=== PATIENT | male | born 1970 | race Native Hawaiian/Other Pacific Islander ===

== ENCOUNTER 2016-12-26 19:42 | Emergency (ER) | payer OTHER ==
[~2016-12-26] VITALS: Ht 172.7 cm; Wt 68.0 kg
[2016-12-26 23:58] VITALS: BP 134/72; TEMP 98.1
== END 2016-12-26 23:59 | disposition home or self-care (01) ==
LOC: ED 19:42
DX: M47.896 Other spondylosis, lumbar region (principal); M47.894 Other spondylosis, thoracic region; W17.2XXA Fall into hole, initial encounter; Y92.098 Other place in other non-institutional residence as the place of occurrence of the external cause
CPT/HCPCS: 96372; 99283; J2360

== ENCOUNTER 2017-01-07 17:05 | Outpatient (CLI) | payer OTHER | END 2017-01-07 17:07 | disposition short-term general hospital (02) | LOC: AMB 17:05 | DX: M54.89 Other dorsalgia (principal); S01.81XA Laceration without foreign body of other part of head, initial encounter; S61.011A Laceration without foreign body of right thumb without damage to nail, initial encounter; V49.88XA Car occupant (driver) (passenger) injured in other specified transport accidents, initial encounter; Y92.488 Other paved roadways as the place of occurrence of the external cause | CPT/HCPCS: A0425; A0427 ==

== ENCOUNTER 2017-01-07 17:11 | Emergency (ER) | payer OTHER ==
[~2017-01-07] VITALS: Ht 172.7 cm; Wt 72.6 kg
[2017-01-07 17:57] LABS: PLATELET COUNT 304 K/uL (142-355)
[2017-01-07 18:12] LABS: POTASSIUM 3.8 mmol/L (3.6-5.2); SODIUM 138 mmol/L (136-145)
[2017-01-07 22:06] VITALS: BP 115/90; TEMP 98
== END 2017-01-07 22:20 | disposition home or self-care (01) ==
LOC: ED 17:11
PROVIDERS: Emergency Medicine
PROC: 0JQ10ZZ Repair Face Subcutaneous Tissue and Fascia, Open Approach (ICD-10-PCS; principal; 2017-01-07)
PROC: 0JQJ0ZZ Repair Right Hand Subcutaneous Tissue and Fascia, Open Approach (ICD-10-PCS; 2017-01-07)
DX: S80.01XA Contusion of right knee, initial encounter (principal); S01.81XA Laceration without foreign body of other part of head, initial encounter; S00.81XA Abrasion of other part of head, initial encounter; S00.83XA Contusion of other part of head, initial encounter; S61.216A Laceration without foreign body of right little finger without damage to nail, initial encounter; V44.5XXA Car driver injured in collision with heavy transport vehicle or bus in traffic accident, initial encounter
CPT/HCPCS: 36415; 80053; 80320; 85027; 90715; 96361; 96372; 96374; 99285; J1630; J1885; J7040; Q9963

== ENCOUNTER → 2017-05-15 19:08 | Outpatient (CLI) | payer OTHER | END | disposition home or self-care (01) | LOC: AMB 19:08 | DX: R56.9 Unspecified convulsions (principal) ==

== ENCOUNTER 2017-05-30 20:43 | Emergency (ER) | payer OTHER ==
[~2017-05-30] VITALS: Ht 172.7 cm; Wt 75.3 kg
[2017-05-30 21:42] VITALS: TEMP 98
[2017-05-30] MEDS ORDERED: NORCO 10/325***1 TAB PO (21:44)
[2017-05-30] MEDS ORDERED: XANAX XR1 MG OR (21:44)
[2017-05-30] MEDS ORDERED: KEPPRA1000 MG PO (21:45)
[2017-05-31 01:08] VITALS: BP 124/72
== END 2017-05-31 01:08 | disposition home or self-care (01) ==
LOC: ED 20:43
DX: S50.11XA Contusion of right forearm, initial encounter (principal); S00.93XA Contusion of unspecified part of head, initial encounter; S20.222A Contusion of left back wall of thorax, initial encounter; S20.221A Contusion of right back wall of thorax, initial encounter; S30.0XXA Contusion of lower back and pelvis, initial encounter; Y00.XXXA Assault by blunt object, initial encounter; Y92.098 Other place in other non-institutional residence as the place of occurrence of the external cause
CPT/HCPCS: 96373; 99283; J1885

== ENCOUNTER 2017-10-22 10:46 | Outpatient (CLI) | payer OTHER ==
[~2017-10-22 10:46] MED LIST: KEPPRA1000 MG PO; NORCO 10/325***1 TAB PO; XANAX XR1 MG OR
== END 2017-10-22 10:54 | disposition short-term general hospital (02) ==
LOC: AMB 10:46
DX: M54.5 Low back pain (principal); W01.0XXA Fall on same level from slipping, tripping and stumbling without subsequent striking against object, initial encounter; Y92.096 Garden or yard of other non-institutional residence as the place of occurrence of the external cause
CPT/HCPCS: A0425; A0427

== ENCOUNTER 2017-10-22 10:59 | Emergency (ER) | payer OTHER ==
[~2017-10-22] VITALS: Ht 172.7 cm; Wt 76.2 kg
[2017-10-22 11:32] LABS: PLATELET COUNT 234 K/uL (142-355)
[2017-10-22 11:41] LABS: POTASSIUM 4.3 mmol/L (3.6-5.2)
[2017-10-22 13:15] VITALS: BP 117/60; TEMP 99.1
== END 2017-10-22 13:23 | disposition home or self-care (01) ==
LOC: ED 10:59
PROVIDERS: Family Medicine
DX: M54.9 Dorsalgia, unspecified (principal); W17.2XXA Fall into hole, initial encounter; Y92.096 Garden or yard of other non-institutional residence as the place of occurrence of the external cause
CPT/HCPCS: 80053; 85027; 96365; 96374; 96376; 99284; J1200; J1885; J2405

== ENCOUNTER 2017-11-29 06:16 | Emergency (ER) | payer OTHER ==
[~2017-11-29] VITALS: Ht 172.7 cm; Wt 79.4 kg
[2017-11-29 07:48] VITALS: BP 110/68; TEMP 98.2
== END 2017-11-29 08:02 | disposition home or self-care (01) ==
LOC: ED 06:16
DX: M51.86 Other intervertebral disc disorders, lumbar region (principal); M54.5 Low back pain; G89.29 Other chronic pain; X50.1XXA Overexertion from prolonged static or awkward postures, initial encounter; Y92.098 Other place in other non-institutional residence as the place of occurrence of the external cause
CPT/HCPCS: 96374; 99284; J1100; J1885

== ENCOUNTER 2018-02-05 14:07 | Emergency (ER) | payer OTHER ==
[~2018-02-05] VITALS: Ht 172.7 cm; Wt 74.8 kg
[2018-02-05 14:41] LABS: PLATELET COUNT 263 K/uL (142-355)
[2018-02-05 14:51] LABS: POTASSIUM 3.7 mmol/L (3.6-5.2)
[2018-02-05 15:42] VITALS: BP 123/78; TEMP 98.2
== END 2018-02-05 15:42 | disposition home or self-care (01) ==
LOC: ED 14:07
DX: M54.5 Low back pain (principal); W19.XXXA Unspecified fall, initial encounter
CPT/HCPCS: 80053; 85027; 96372; 99283; J1885; J2405

== ENCOUNTER 2018-06-21 17:49 | Outpatient (CLI) | payer OTHER | END 2018-06-21 17:58 | disposition short-term general hospital (02) | LOC: AMB 17:49 | DX: R56.9 Unspecified convulsions (principal) | CPT/HCPCS: A0425; A0427 ==

== ENCOUNTER 2018-06-21 18:05 | Emergency (ER) | payer OTHER ==
[~2018-06-21] VITALS: Ht 172.7 cm; Wt 68.0 kg
[2018-06-21 18:57] LABS: PLATELET COUNT 314 K/uL (142-355)
[2018-06-21 23:18] VITALS: BP 116/76; TEMP 98.1
== END 2018-06-21 23:30 | disposition home or self-care (01) ==
LOC: ED 18:05
PROVIDERS: Family Medicine; Internal Medicine
DX: E86.0 Dehydration (principal); F19.20 Other psychoactive substance dependence, uncomplicated
CPT/HCPCS: 36415; 80053; 80307; 81000; 84484; 85027; 93005; 96360; 96374; 96375; 99284; J1885

== ENCOUNTER 2020-09-28 05:49 | Emergency (ER) | payer OTHER ==
[~2020-09-28] VITALS: Ht 172.7 cm; Wt 93.0 kg
[2020-09-28 06:50] VITALS: BP 121/84; TEMP 98.3
== END 2020-09-28 06:51 | disposition home or self-care (01) ==
LOC: ED 05:49
DX: L73.1 Pseudofolliculitis barbae (principal); R23.8 Other skin changes
CPT/HCPCS: 99281

== ENCOUNTER 2021-03-07 16:57 | Emergency (ER) | payer OTHER ==
[~2021-03-07] VITALS: Ht 172.7 cm; Wt 93.0 kg
[2021-03-07 17:11] VITALS: BP 139/89; TEMP 98.3
== END 2021-03-07 19:56 | disposition home or self-care (01) ==
LOC: ED 16:57
DX: R52 Pain, unspecified (principal); R53.1 Weakness; R50.9 Fever, unspecified; R51.9 Headache, unspecified; Z53.21 Procedure and treatment not carried out due to patient leaving prior to being seen by health care provider
CPT/HCPCS: 99281

== ENCOUNTER 2021-09-03 21:43 | Emergency (ER) | payer OTHER ==
[~2021-09-03] VITALS: Ht 172.7 cm; Wt 88.5 kg
[2021-09-03 22:44] LABS: PLATELET COUNT 269 K/uL (142-355)
[2021-09-03 22:47] LABS: POTASSIUM 3.4 mmol/L (3.6-5.2)
[2021-09-04 02:20] VITALS: BP 131/74; TEMP 99.4
== END 2021-09-04 02:20 | disposition short-term general hospital (02) ==
LOC: ED 21:43
PROVIDERS: Emergency Medicine
DX: R22.31 Localized swelling, mass and lump, right upper limb (principal); L02.411 Cutaneous abscess of right axilla; L03.111 Cellulitis of right axilla; Z11.52 Encounter for screening for COVID-19
CPT/HCPCS: 36415; 80053; 83605; 85027; 87040; 87635; 96365; 96366; 99284; J0696; J3370; Q9963; U0003